=== PATIENT | male | born 1975 | race Hispanic/Latino ===

== ENCOUNTER 2019-05-13 06:08 | Day surgery (SDC) | payer OTHER ==
[~2019-05-13] VITALS: Ht 182.9 cm; Wt 139.7 kg
[2019-05-13 07:39] VITALS: BP 121/69
[2019-05-13] MEDS ORDERED: SODIUM CHLORIDE 0.9% 1000ML 1,000 ML IV ONE (07:49)
[2019-05-13] MEDS ORDERED: PROPOFOL 10 MG/ML 20ML VIAL IV ONE (09:03)
[2019-05-13 09:12] VITALS: BP 102/58
[2019-05-13 09:17] VITALS: BP 102/58
[2019-05-13 09:22] VITALS: BP 100/59
[2019-05-13 09:27] VITALS: BP 107/60
[2019-05-13 09:32] VITALS: BP 110/62
--- NOTE | 2019-05-13 09:35 | NUR ---
dc pt dc home via wc , no distress noted. denied any pain or discomforts. accompanied by spouse, dc instructions given to spouse earlier,
== END 2019-05-13 09:35 | disposition home or self-care (01) ==
LOC: ENDO 06:08 → DAH 06:08 → ENDO 09:35
PROVIDERS: ATTEND Surgery
DX: K21.0 Gastro-esophageal reflux disease with esophagitis (principal); E66.01 Morbid (severe) obesity due to excess calories; Z68.41 Body mass index [BMI] 40.0-44.9, adult; Z94.7 Corneal transplant status; Z72.89 Other problems related to lifestyle; Z87.891 Personal history of nicotine dependence; Z82.49 Family history of ischemic heart disease and other diseases of the circulatory system; Z83.3 Family history of diabetes mellitus
CPT/HCPCS: 43239; 88305; A4606; J2704; J7030